=== PATIENT | female | born 1990 | race Caucasian/White ===

== ENCOUNTER 2017-04-02 10:46 | Emergency (ER) | payer MEDICARE, MEDICAID ==
[~2017-04-02] VITALS: Ht 157.5 cm; Wt 54.7 kg
[~2017-04-02 10:46] MED LIST: ACYCLOVIR PO; AUGMENTIN500 MG PO; COLACE100 M1 PO; DICYCLOMINE HCL20 M1 PO; FAMVIR500 MG PO; FLONASE16 GM NS; LITHIUM CARBON300 M; MELATIN3 MG PO; METADATE CD20 M1 PO; MIRALAX17 G2 PO; NORCO 5/325 TAB1 TAB PO; OXYCODONE HCL5 M1 PO; PHENERGAN W/CO120 ML PO; PRENATAL 19 TA1 EAC1 PO; PRILOSEC OTC20 MG; RISPERDAL1 MG; RISPERDAL2 MG; STRATTERA18 MG PO; TOPAMAX50 M3 PO; TOPIRAMATE100 M1 PO; ZOLOFT25 MG; ZOVIRAX15 GM TP; [UNRECOGNIZED DRUG - OTHER]
[2017-04-02] MEDS ORDERED: NEURONTIN300 M1 (11:03)
[2017-04-02] MEDS ORDERED: PRENA1 PEARL S1 EACH PO (11:03)
[2017-04-02] MEDS ORDERED: HYDROCODON-ACE1 EA16 PO (11:04)
[2017-04-02] MEDS ORDERED: BACTRIM DS TAB1 EAC2 PO (11:04)
[2017-04-02] MEDS ORDERED: AUGMENTIN 875-1 EAC2 PO (11:04)
== END 2017-04-02 12:00 ==
LOC: EDMED 10:46
PROC: 0H9FXZZ Drainage of Right Hand Skin, External Approach (ICD-10-PCS; principal; 2017-04-02)
DX: L02.511 Cutaneous abscess of right hand (principal); F17.200 Nicotine dependence, unspecified, uncomplicated; Z79.82 Long term (current) use of aspirin

== ENCOUNTER 2017-04-05 18:14 | Emergency (ER) | payer MEDICARE, MEDICAID ==
[~2017-04-05] VITALS: Ht 157.5 cm; Wt 54.5 kg
[~2017-04-05 18:14] MED LIST changes: +AUGMENTIN 875-1 EAC2 PO; +BACTRIM DS TAB1 EAC2 PO; +HYDROCODON-ACE1 EA16 PO; +NEURONTIN300 M1; +PRENA1 PEARL S1 EACH PO
[2017-04-05 19:26] LABS: ALBUMIN 3.8 g/dl (3.5-5.0); ALKALINE PHOSPHATASE 58 U/L (33-138); ALT/SGPT 47 U/L (12-78); ANION GAP 11 mmol/L (0-20); AST/SGOT 27 U/L (10-40); BILIRUBIN,TOTAL 0.2 mg/dl (0-1.5); BLOOD UREA NITROGEN 17 mg/dl (6-24); CALCIUM 8.9 mg/dl (8.5-10.5); CARBON DIOXIDE-VENOUS 29 mmol/L (22-32); CHLORIDE 102 mmol/l (96-110); CREATININE 0.83 mg/dl (0.50-1.10); GLUCOSE 92 mg/dL (70-110); POTASSIUM 3.9 mmol/L (3.7-5.1); SODIUM 138 mmol/L (135-145); eGFR VALUE FOR BLACK >90 mL/Min
[2017-04-05 19:28] LABS: BASO % 0.6 % (0-2); EOSINOPHIL ABSOLUTE COUNT 0.1 tho/cmm (0.0-0.7); HCT-HEMATOCRIT 34.6 % (34.0-49.0); HGB-HEMOGLOBIN 11.6 gm/dl (12.0-15.5); IMMATURE GRANULOCYTES ABSOLUTE 0.04 tho/cmm (0-0.03); IMMATURE GRANULOCYTES PERCENT 0.6 % (0-0.3); LYMPH % 29.1 % (20-45); LYMPH ABSOLUTE COUNT 1.9 tho/cmm (0.8-4.5); MCH (MEAN CORPUSCULAR HGB) 29.7 pg (28.0-32.0); MCHC MEAN CORPUSCULAR HGB CONC 33.5 % (32.0-36.0); MCV (MEAN CELL VOLUME) 88.5 fl (82.0-96.0); MEAN PLATELET VOLUME 8.5 cmc (9.4-12.4); MONO % 6.4 % (0-12); MONOCYTE ABSOLUTE COUNT 0.4 tho/cmm (0.0-1.2); NEUTROPHILS % 61.3 % (40-80); PLATELET COUNT 380 tho/cmm (150-450); RED BLOOD COUNT 3.91 mil/cmm (4.00-5.20); RED CELL DISTRIBUTION WIDTH 13.4 % (12.4-16.4); WHITE BLOOD COUNT 6.5 tho/cmm (4.0-10.0)
[2017-04-05] MEDS ORDERED: AUGMENTIN 875-1 EAC2 PO (19:39)
[2017-04-05] MEDS ORDERED: BACTRIM DS TAB1 EAC2 PO (19:39)
[2017-04-05] MEDS ORDERED: NORCO 5-325 TA1 EACH PO (19:39)
== END 2017-04-05 20:00 ==
LOC: EDMED → EDBD 18:14 → EDMED 20:00
PROVIDERS: Emergency Medicine
DX: L03.011 Cellulitis of right finger (principal); F17.200 Nicotine dependence, unspecified, uncomplicated; Z87.442 Personal history of urinary calculi; Z90.49 Acquired absence of other specified parts of digestive tract